=== PATIENT | male | born 1995 | race Caucasian/White ===

== ENCOUNTER 2018-08-14 18:30 | Emergency (ER) | payer SELFPAY ==
[~2018-08-14] VITALS: Ht 182.9 cm; Wt 60.3 kg
--- NOTE | 2018-08-14 18:47 | NUR ---
ED Nurse Note: PT CAME IN DUE TO THROAT PAIN THAT GOES TO HIS RIGHT NIPPLE. PT ALSO C/O LUMP ON HIS RIGHT BREAST. AAO X4, AMBULATORY WITH UNLABORED BREATHING.
--- NOTE | 2018-08-14 19:07 | NUR ---
HAND-OFF: Report given to KISHOR GATES.
[2018-08-14 19:39] LABS: APPEARANCE,URINE CLEAR; BILIRUBIN, URINE NEGATIVE (NEGATIVE); COLOR,URINE PALE YELLOW; GLUCOSE, URINE (UA) NEGATIVE (NEGATIVE); KETONES,URINE NEGATIVE (NEGATIVE); LEUKOCYTE ESTERASE ,URINE 1+ (NEGATIVE); NITRITE,URINE NEGATIVE (NEGATIVE); PH,URINE 7 (4.5-8.0); PROTEIN,URINE NEGATIVE (NEGATIVE); UROBILINOGEN,URINE NORMAL MG/DL (0.0-1.0)
[2018-08-14 19:40] LABS: BASOPHILS % (AUTO) 1.7 % (0.0-2.0); HEMATOCRIT 40.9 % (42.0-52.0); HEMOGLOBIN 14.8 G/DL (14.2-18.0); LYMPHOCYTES % (AUTO) 35.6 % (20.0-45.0); MEAN CORPUSCULAR VOLUME 85 FL (80-99); MONOCYTES % (AUTO) 10.6 % (1.0-10.0); NEUTROPHILS % (AUTO) 51.1 % (45.0-75.0); PLATELET COUNT 230 K/UL (150-450); RED BLOOD COUNT 4.79 M/UL (4.70-6.10); RED CELL DISTRIBUTION WIDTH 10.5 % (11.6-14.8); WHITE BLOOD COUNT 7.8 K/UL (4.8-10.8)
--- NOTE | 2018-08-14 19:40 | Emergency Room Report ---
History of Present Illness General Chief Complaint: General Complaint Source: Patient Present Illness HPI 22-year-old male with history of tobacco smoke x10 years here complaining of several weeks of burning sensation in the road radiating all the way down his esophagus and going into his chest to the right. Patient denies eating spicy food. Has never been seen by [facility]. Has been trying over-the- counter antacids. Patient reports that he has taken multiple antibiotics in the past for this and not has helped. Denies chest pain, palpitation, shortness of breath, fever chills, nausea vomiting. Denies abdominal pain, diarrhea and constipation. Patient complains of weight loss and night sweats. Patient has been smoking 1 pack a day for the past 4 years. Also complains of urinary frequency however denies painful urination. Patient also complains of a palpable mass that he has been feeling in the right breast times few months without pain. Allergies: Coded Allergies: No Known Allergies (Unverified , 08/14/18) Patient History Past Medical History: see triage record Past Surgical History: unable to obtain Pertinent Family History: none Immunizations: UTD Reviewed Nursing Documentation: PMH: Agreed; PSxH: Agreed Nursing Documentation-PMH Past Medical History: No Stated History Review of Systems All Other Systems: negative except mentioned in HPI Physical Exam Vital Signs Date Time Temp Pulse Resp B/P (MAP) Pulse Ox O2 Delivery O2 Flow Rate FiO2 08/14/18 18:37 97.9 72 18 124/69 (87) 99 Room Air Sp02 EP Interpretation: reviewed, normal General Appearance: normal inspection, well appearing, no apparent distress, alert, GCS 15 Head: normocephalic, atraumatic Eyes: bilateral eye normal inspection, bilateral eye PERRL ENT: hearing grossly normal, no angioedema, pharyngeal erythema Neck: normal inspection, full range of motion, supple, thyroid normal Respiratory: normal inspection, chest non-tender, lungs clear, no rhonchi, no respiratory distress, no wheezing Cardiovascular #1: normal inspection, normal peripheral pulses, regular rate, rhythm, no edema, no gallop, no murmur Gastrointestinal: normal inspection, soft, no mass, no organomegaly Rectal: deferred Genitourinary: no CVA tenderness Musculoskeletal: back normal, digits/nails normal, other - No mass noted around the nipple and right breast Neurologic: normal inspection, alert, oriented x3, responsive, milk bottler III-XII nml as tested, motor strength/tone normal, DTRs symmetric Psychiatric: normal inspection, judgement/insight normal Skin: normal inspection, normal color, no rash, warm/dry, palpation normal Lymphatic: normal inspection, no adenopathy Medical Decision Making PA Attestation All diagnoses and treatment plans were reviewed and discussed with my supervising physician Dr. Wild Diagnostic Impression: Primary Impression: Esophageal abnormality Additional Impressions: GERD (gastroesophageal reflux disease) Pharyngitis UTI (urinary tract infection) ER Course 22-year-old male with history of tobacco smoke x10 years here complaining of several weeks of burning sensation in the road radiating all the way down his esophagus and going into his chest to the right. Patient denies eating spicy food. Has never been seen by [facility]. Has been trying over-the- counter antacids. Patient reports that he has taken multiple antibiotics in the past for this and not has helped. Denies chest pain, palpitation, shortness of breath, fever chills, nausea vomiting. Denies abdominal pain, diarrhea and constipation. Patient complains of weight loss and night sweats. Patient has been smoking 1 pack a day for the past 4 years. Also complains of urinary frequency however denies painful urination. Patient also complains of a palpable mass that he has been feeling in the right breast times few months without pain. Ddx considered but are not limited to:gastritis, gasthroentritis, UTI, GERD, esophageal abnormality, esophageal cancer, breast mass, pharyngitis Vital signs: are WNL, pt. is afebrile H&PE are most consistent with: GERD, esophageal abnormality unknown whether it is benign or malignant, breast mass not palpated, UTI ORDERS: Chest CT no contrast, CBC, CMP, UA, ranitidine, pantoprazole, Keflex ED INTERVENTIONS: None required at this time. DISCHARGE: At this time pt. is stable for d/c to home. Will provide printed patient care instructions, and any necessary prescriptions. Care plan and follow up instructions have been discussed with the patient prior to discharge. I advised the patient to follow-up with a primary care provider for referral to [facility] I also gave him Dr. rajesh lopez endoscopy is needed due to patient's history of heavy tobacco smoke to rule out abnormalities of the esophagus and gastroesophageal reflux disease Keflex will cover both pharyngitis and UTI symptoms also advised patient to have an ultrasound of the right breast rule out abnormalities requested by primary care physician Urine positive for infection CT/MRI/US Diagnostic Results CT/MRI/US Diagnostic Results : Imaging Test Ordered: chest CT no contrast Impression CT CHEST Without Contrast: INDICATION: chest pain TECHNIQUE: Multiple, contiguous 5 mm axial cuts of the chest are obtained. No IV contrast is administered. High resolution axial images as well as sagittal and coronal reformatted images are available. COMPARISON: none available FINDINGS: No mass lesion, adenopathy or effusions are seen. The lungs are clear. The aorta is normal caliber. The cardiomediastinal structures are normal. The osseous structures are unremarkable. IMPRESSION: Normal noncontrast CT of the Chest. Last Vital Signs Date Time Temp Pulse Resp B/P (MAP) Pulse Ox O2 Delivery O2 Flow Rate FiO2 08/14/18 18:47 72 18 Room Air 08/14/18 18:37 97.9 124/69 (87) 99 Disposition: HOME, SELF-CARE Condition: Stable Scripts Cephalexin* (KEFLEX*) 500 Mg Capsule 500 MG ORAL EVERY 8 HOURS for 7 Days, #21 CAP Prov: Anmol Davenport 08/14/18 Pantoprazole* (PANTOPRAZOLE*) 40 Mg Tablet.dr 40 MG ORAL EVERY 12 HOURS, #30 TAB Prov: Anmol Davenport 08/14/18 Ranitidine Hcl* (ZANTAC*) 150 Mg Tablet 150 MG ORAL DAILY, #30 TAB 0 Refills Prov: Anmol Davenport 08/14/18 Patient Instructions: Food Choices for Gastroesophageal Reflux Disease, Adult, [id number], Pharyngitis, [id number], Urinary Tract Infection, [id number] Additional Instructions: Follow-up with your primary doctor for referral to [facility] for endoscopy due to your smoking history to rule out abnormalities of your esophagus Anmol Davenport Aug 14, 2018 19:40
[2018-08-14 19:45] LABS: ANION GAP 9 mmol/L (5-15); BLOOD UREA NITROGEN 8 mg/dL (7-18); CALCIUM 9.8 MG/DL (8.5-10.1); CARBON DIOXIDE 28 MMOL/L (21-32); CHLORIDE 103 MMOL/L (98-107); POTASSIUM 3.6 MMOL/L (3.5-5.1); SODIUM 140 MMOL/L (136-145)
[2018-08-14] MEDS ORDERED: CEPHALEXIN500 MG ORAL (19:54)
[2018-08-14] MEDS ORDERED: PANTOPRAZOLE SO40 MG ORAL (19:54)
[2018-08-14] MEDS ORDERED: ZANTAC150 MG ORAL (19:54)
[2018-08-14 19:57] LABS: ALANINE AMINOTRANSFERASE 21 U/L (12-78); ALBUMIN 4.7 G/DL (3.4-5.0); ALBUMIN/GLOBULIN RATIO 1.4 (1.0-2.7); ALKALINE PHOSPHATASE 72 U/L (46-116); ASPARTATE AMINO TRANSFERASE 18 U/L (15-37); BILIRUBIN,TOTAL 1.1 MG/DL (0.2-1.0)
[2018-08-14 19:58] LABS: BILIRUBIN,DIRECT 0.2 MG/DL (0.0-0.3)
[2018-08-14 20:01] VITALS: BP 125/72
[2018-08-14 20:09] VITALS: BP 120/86
--- NOTE | 2018-08-14 20:09 | NUR ---
ER DISCHARGE NOTE: Patient is cleared to be discharged per ERMD, pt is aox4, on room air, with stable vital signs. pt was given dc and prescription instructions, pt was able to verbalize understanding, pt id band removed. pt is able to ambulate with steady gait. pt took all belongings.
--- NOTE | 2018-08-15 12:08 | Diagnostic Imaging Report ---
Clinical Indication: Chest pain Technique: Spiral acquisitions obtained through the chest. No IV contrast utilized, reason not stated. Multiplanar reconstructions generated. Total dose length product 615.77 mGycm. CTDIvol(s) 14.61 mGy. Dose reduction achieved using automated exposure control Comparison: none Findings: Lungs and pleural spaces are clear. No infiltrates, effusions, masses, or nodules demonstrated. The heart size is normal. No pericardial effusion. No mediastinal or hilar mass or adenopathy. Unremarkable esophagus. Included portion of the thyroid is unremarkable. No axillary or chest wall mass or adenopathy. The bones are unremarkable. The included upper abdominal viscera are unremarkable. Impression: Negative This agrees with the preliminary interpretation provided overnight by [facility] teleradiology service. The CT scanner at [facility] is accredited by the [employer] and the scans are performed using protocols designed to limit radiation exposure to as low as reasonably achievable to attain images of sufficient resolution adequate for diagnostic evaluation.
== END 2018-08-14 20:09 | disposition home or self-care (01) ==
LOC: EMR 19:00
DX: K22.8 Other specified diseases of esophagus (principal); K21.9 Gastro-esophageal reflux disease without esophagitis; J02.9 Acute pharyngitis, unspecified; N39.0 Urinary tract infection, site not specified; F17.210 Nicotine dependence, cigarettes, uncomplicated
CPT/HCPCS: 36415; 71250; 80053; 81001; 82248; 85025; 87086; 99284